=== PATIENT | male | born 1950 | race Caucasian/White ===

== ENCOUNTER 2019-05-24 15:19 | Emergency (ER) | payer OTHER, MEDICARE | END 2019-05-24 18:00 | disposition left against medical advice (07) | LOC: JER 15:19 ==

== ENCOUNTER 2019-05-24 21:13 | Inpatient (IN) | payer OTHER, MEDICARE ==
--- NOTE | 2019-05-24 22:00 | PDOC ---
History of Present Illness - General Chief Complaint: Chest Pain Stated Complaint: CHEST PAIN Time Seen by Provider: 05/24/19 21:56 History Source: Patient Exam Limitations: No Limitations - History of Present Illness Initial Comments: 05/24/19 22:32 69 year old man with a history of HTN presents with heart palpitations and hypotension after working out at the gym at approximately 2 pm. The patient reports that he works out 3-4 times a week. He goes on the treadmill, rowing machine and does sit ups. The patient reports that his symptoms persisted for 2 hours. He took his BP and found it to be 84/57 and a HR of 198. He denies any chest pain or shortness of breath but says that he might have felt some lightheadedness but did not feel it significantly. He denies any nausea. He drove himself to the urgent care where his EKG at the time showed SVT. He was brought to the ED via EMS where carotid massage was performed en route. He denies any other complaints. He left AMA earlier today due to providing sole care to his elderly 97 year old mother at home. He returned and states he feels a sensation of tiredness in his chest. His troponin earlier was 1.36. Allergies: NKDA Past History - Past Medical History Allergies/Adverse Reactions: Allergies Allergy/AdvReac Type Severity Reaction Status Date / Time No Known Allergies Allergy Verified 05/24/19 21:32 Home Medications: Ambulatory Orders Ipratropium [place] 1 spr NS DAILY 05/24/19 Levocetirizine Dihydrochloride 5 mg PO DAILY 05/24/19 Lisinopril 5 mg PO DAILY 05/24/19 Montelukast Sodium [Singulair] 10 mg PO DAILY 05/24/19 Cancer: Yes COPD: No GI Disorders: Yes (diverticular) HTN: Yes - Suicide/Smoking/Psychosocial Hx Smoking History: Never smoked Have you smoked in the past 12 months: No Hx Alcohol Use: No Drug/Substance Use Hx: No *Physical Exam - Vital Signs Last Vital Signs Temp Pulse Resp BP Pulse Ox 97.5 F L 68 18 114/69 100 05/24/19 21:32 05/24/19 21:32 05/24/19 21:32 05/24/19 21:32 05/24/19 21:32 Medical Decision Making - Medical Decision Making 05/25/19 00:34 Laboratory Tests 05/24/19 22:30 Creatine Kinase 472 H Creatine Kinase Index 7.4 H CK-MB (CK-2) 35.0 H Troponin I 8.17 H* trop elevated at 8.17. spoke to sole. agrees likely demand secondary to SVT earlier but will start plavix, lopressor, lovenox. already received full aspirin earlier today.
[2019-05-24] MEDS ORDERED: ASPIRIN 81 MG CHEWABLE TABLETS PO ONE (23:31)
[2019-05-25] MEDS ORDERED: ASPIRIN 81 MG CHEWABLE TABLETS ONE (00:11)
[2019-05-25] MEDS ORDERED: ENOXAPARIN NA (PORCINE) 40 MG/0.4 ML DISP.SYRIN SQ ONE ×3 (00:29→02:25)
[2019-05-25] MEDS ORDERED: METOPROLOL TARTRATE 25 MG TABLET (FP) PO ONE (00:29)
[2019-05-25] MEDS ORDERED: CLOPIDOGREL BISULFATE 300 MG TABLET PO ONE (00:29)
[2019-05-25] MEDS ORDERED: CLOPIDOGREL BISULFATE 300 MG TABLET ONE (00:49)
[2019-05-25] MEDS ORDERED: METOPROLOL TARTRATE 25 MG TABLET (FP) ONE (00:50)
--- NOTE | 2019-05-25 01:39 | PN ---
Teaching Attending Note Name of Resident: Miesha Slaughter ATTENDING PHYSICIAN STATEMENT I saw and evaluated the patient. I reviewed the resident's note and discussed the case with the resident. I agree with the resident's findings and plan as documented. SUBJECTIVE: Patient is a 69 year old man with a PMH of HTN and ?Asthma who presents with heart palpitations and hypotension after working out at the gym at approximately 2 pm. The patient reports that he works out 3-4 times a week. He goes on the treadmill, rowing machine and does sit ups. The patient reports that his symptoms persisted for 2 hours. He took his BP and found it to be 84/ 57 and a HR of 198. He denies any chest pain or shortness of breath but says that he might have felt some lightheadedness but did not feel it significantly. He denies any nausea. He drove himself to the urgent care where his EKG at the time showed SVT. He was brought to the ER via EMS and carotid massage was performed en route and his heart rate improved. He denies any other complaints. He left AMA earlier today due to providing sole care to his elderly 97 year old mother at home. He returned and states he feels a sensation of tiredness in his chest. His troponin earlier was 1.36. OBJECTIVE: Alert Vital Signs Period Temp Pulse Resp BP Sys/Lorenzo Pulse Ox Last 24 Hr 97.5 F 68 18 114/69 100 HEENT: No Jaundice, eye redness or discharge, PERRLA, EOMI. Normocephalic, atraumatic. External ears are normal and hearing is grossly intact. No nasal discharge. Neck: Supple, nontender. No palpable adenopathy or thyromegaly. No JVD Chest: Good effort. Clear to auscultation and percussion. Heart: Regular. No S3, rub or murmur Abdomen: Not distended, soft, nontender and no HSM. No rebound or guarding. Normal bowel sounds. Ext: Peripheral pulses intact. No leg edema. Skin: Warm and dry. No petechiae, rash or ecchymosis. Neuro: Alert. Oriented x3. CN 2-12 grossly intact. Sensation grossly intact in all four extremities and DTR are symmetric. Psych: Appropriate mood and affect. Good insight. Current Medications Generic Name Dose Route Start Last Admin Trade Name Freq PRN Reason Stop Dose Admin Aspirin 81 mg 05/25/19 10:00 Asa - PO DAILY [facility] Clopidogrel Bisulfate 75 mg 05/25/19 10:00 Plavix - PO DAILY [facility] Enoxaparin Sodium 40 mg 05/25/19 02:25 Lovenox - SQ 05/25/19 02:26 ONCE ONE Enoxaparin Sodium 80 mg 05/25/19 10:00 Lovenox - SQ BID [facility] Home Medications Medication Instructions Recorded Ipratropium [place] 1 spr NS DAILY 05/24/19 Levocetirizine Dihydrochloride 5 mg PO DAILY 05/24/19 Lisinopril 5 mg PO DAILY 05/24/19 Montelukast Sodium [Singulair] 10 mg PO DAILY 05/24/19 Abnormal Lab Results 05/24/19 22:30 Creatine Kinase 472 H Creatine Kinase Index 7.4 H CK-MB (CK-2) 35.0 H Troponin I 8.17 H* ASSESSMENT AND PLAN: 1. NSTEMI and SVT - EKG shows NSR with no significant ST-T wave changes. Repeat troponin is up to 8.17. ER staff spoke with the sales merchandise associate who recommended Plavix, Lopressor and full dose Lovenox. Already received Aspirin 162 mg. Admit to telemetry, trend troponin, get fasting lipids, ECHO, TSH and urine toxicology. No acute abnormality on CXR. 2. Hypertension - Restart suitable outpatient antihypertensive drugs when clinically appropriate. Revise regimen to ensure [id number] excellent BP control and chemical dependency counselor patient on the injurious effects of uncontrolled hypertension. Nonpharmacologic measures to control hypertension like weight loss , salt restriction and exercise discussed. Importance of adherence to treatment regimen and attainment of normotension emphasized. 3. DVT prophylaxis - On full dose lovenox for NSTEMI 4. Advance directives - Full code
--- NOTE | 2019-05-25 01:47 | PDOC ---
Documentation entered by Yesenia Carson SCRIBE, acting as scribe for Kerline Evans MD. Kerline Evans MD: This documentation has been prepared by the Alli noe Xhesika, SCRIBE, under my direction and personally reviewed by me in its entirety. I confirm that the documentation accurately reflects all work, treatment, procedures, and medical decision making performed by me. Attending Attestation - Resident Resident Name: Hay Max - ED Attending Attestation I have performed the following: I have examined & evaluated the patient, The case was reviewed & discussed with the resident, I agree w/resident's findings & plan - HPI HPI: 05/25/19 01:44 The patient is a 69 year old male with a significant PMH of HTN who presents to the emergency department with heart palpitations. Patient was seen here in the ED this morning for similar symptoms, had a positive Troponin, however, patient AMAd to take care of a family member (his elderly 97 year old mother at home), and returned to the ED now because he was told to. The patient states his symptoms began after working out at the gym at 2pm, came home, and when he measured his BP it was 84/57 and HR of 198. Patient denies any chest pain currently but notes he feels a tiredness sensation in his chest. The patient denies chest pain, shortness of breath, headache and dizziness. Denies fever, chills, cough, nausea, vomiting, diarrhea and constipation. Denies dysuria, frequency, urgency and hematuria. Allergies: NKDA - Physicial Exam PE: 05/25/19 01:45 GENERAL: Awake, alert, and fully oriented, in no acute distress HEAD: No signs of trauma EYES: PERRLA, EOMI, sclera anicteric, conjunctiva clear ENT: Auricles normal inspection, hearing grossly normal, nares patent, oropharynx clear without exudates. Moist mucosa NECK: Normal ROM, supple, no lymphadenopathy, JVD, or masses LUNGS: Breath sounds equal, clear to auscultation bilaterally. No wheezes, and no crackles HEART: Regular rate and rhythm, normal S1 and S2, no murmurs, rubs or gallops ABDOMEN: Soft, nontender, normoactive bowel sounds. No guarding, no rebound. No masses EXTREMITIES: Normal range of motion, no edema. No clubbing or cyanosis. No cords, erythema, or tenderness NEUROLOGICAL: Cranial nerves II through XII grossly intact. Normal speech, normal gait SKIN: Warm, Dry, normal turgor, no rashes or lesions noted. - Medical Decision Making 05/25/19 01:45 Pt is spilling troponins. EKG is normal earlier today and currently. He has no CP; he has returned because he was told that he has elevated enzyme and he was told to ocme in. 05/25/19 01:46 Pt has trop of 8. He will be admitted to telemetry. I am not treating with blood thinners, as pt has no chest pain, and he never had CP. We paged computational sciences professor cards rina, and no response.
--- NOTE | 2019-05-25 03:08 | HP ---
CHIEF COMPLAINT:palpitations, elevated troponin PCP:Dr. Milner HISTORY OF PRESENT ILLNESS: Patient is a 69 year old male with past medical history of HTN, was BIBEMS after an episode of palpitations and hypotension that started after working out yesterday afternoon. Patient reported he worked out at the gym, finished at around 2 pm and right after noted palpitations. This persisted for about 2 hours , when patient finally decided to go to an urgent care. At the urgent care, patient was found to be hypotensive at 84/57 and tachycardic at 198. EKG showed SVT and patient was subsequently brought to the ED. En route to the hospital, carotid massage was done by EMS which resolved the tachycardia. Upon arrival at the ED, HR was at 60s and EKG repeated showed NSR with no ischemic changes. Troponin was noted to be elevated at 1.36 and ASA 325mg was given. Cardiology was consulted and admission was recommended. PAtient however decided to leave AMA to go home and take care of his mother, and promised to come back when everything was settled at home. Last night, at around 9pm, patient came back for further evaluation and was amenable to admission this time. Since arrival at the hospital, patient denies any headache, dizziness, chest pain, shortness of breath, palpitations, abdominal pain, diarrhea, urinary symptoms. ER course was notable for: (1)Trop 1.35 --> 8.17 (2)EKG: NSR with no acute ST-T wave changes (3)Lopressor 25mg, Lovenox 80mg, Plavix 300mg Recent Travel:denies PAST MEDICAL HISTORY: HTN PAST SURGICAL HISTORY: none Social History: Smoking:denies Alcohol:denies Drugs: denies Family History: Father - HTN, heart attack at 80 Mother - HTN Allergies No Known Allergies Allergy (Verified 05/24/19 21:32) HOME MEDICATIONS: Home Medications Medication Instructions Recorded Ipratropium [place] 1 spr NS DAILY 05/24/19 Levocetirizine Dihydrochloride 5 mg PO DAILY 05/24/19 Lisinopril 5 mg PO DAILY 05/24/19 Montelukast Sodium [Singulair] 10 mg PO DAILY 05/24/19 REVIEW OF SYSTEMS CONSTITUTIONAL: Absent: fever, chills, diaphoresis, generalized weakness, malaise, loss of appetite, weight change HEENT: Absent: rhinorrhea, nasal congestion, throat pain, throat swelling, difficulty swallowing, mouth swelling, ear pain, eye pain, visual changes CARDIOVASCULAR: Absent: chest pain, syncope, palpitations, irregular heart rate, lightheadedness , peripheral edema RESPIRATORY: Absent: cough, shortness of breath, dyspnea with exertion, orthopnea, wheezing, stridor, hemoptysis GASTROINTESTINAL: Absent: abdominal pain, abdominal distension, nausea, vomiting, diarrhea, constipation, melena, hematochezia GENITOURINARY: Absent: dysuria, frequency, urgency, hesitancy, hematuria, flank pain, genital pain MUSCULOSKELETAL: Absent: myalgia, arthralgia, joint swelling, back pain, neck pain SKIN: Absent: rash, itching, pallor HEMATOLOGIC/IMMUNOLOGIC: Absent: easy bleeding, easy bruising, lymphadenopathy, frequent infections ENDOCRINE: Absent: unexplained weight gain, unexplained weight loss, heat intolerance, cold intolerance NEUROLOGIC: Absent: headache, focal weakness or paresthesias, dizziness, unsteady gait, seizure, mental status changes, bladder or bowel incontinence PSYCHIATRIC: Absent: anxiety, depression, suicidal or homicidal ideation, hallucinations. PHYSICAL EXAMINATION Vital Signs - 24 hr 05/24/19 21:32 Temperature 97.5 F L Pulse Rate 68 Respiratory 18 Rate Blood Pressure 114/69 O2 Sat by Pulse 100 Oximetry (%) GENERAL: Awake, alert, and fully oriented, in no acute distress. HEAD: Normal with no signs of trauma. EYES: PERRLA, EOMI, sclera anicteric, conjunctiva clear. EARS, NOSE, THROAT: Moist mucous membranes. NECK: Normal range of motion, supple. LUNGS: Breath sounds equal, clear to auscultation bilaterally. HEART: Regular rate and rhythm, normal S1 and S2 without murmur, rub or gallop. ABDOMEN: Soft, nontender, not distended, normoactive bowel sounds. MUSCULOSKELETAL: Normal range of motion at all joints. UPPER EXTREMITIES: 2+ pulses, warm, well-perfused.No peripheral edema. LOWER EXTREMITIES: 2+ pulses, warm, well-perfused. No peripheral edema. NEUROLOGICAL: Cranial nerves II-XII intact. Normal speech. Normal gait. Motor strength 5/5, sensation intact. PSYCHIATRIC: Cooperative. Good eye contact. Appropriate mood and affect. SKIN: Warm, dry, normal turgor, no rashes or lesions noted. Laboratory Results - last 24 hr 05/24/19 22:30 Creatine Kinase 472 H Creatine Kinase Index 7.4 H CK-MB (CK-2) 35.0 H Troponin I 8.17 H* ASSESSMENT/PLAN: Patient is a 69 year old male with past medical history of HTN, was BIBEMS after an episode of palpitations and hypotension that started after working out yesterday afternoon. #Elevated troponins -may be 2/2 demand ischemia from SVT vs NSTEMI -Trop 1.36 --> 8.17, will continue to trend -Repeat EKG with trop -Echo -Tele monitoring -Lipid profile -HbA1c -Will keep NPO for now -Cardiology (Dr. Tang) consulted. Recommendations appreciated. -Start Lovenox 80mg sq bid -Plavix 300mg given at the ED, will continue 75mg daily -ASA 81mg daily -Lopressor 25mg given once at the ED, will hold Lopressor for now, HR noted to be at the high 40s. #HTN -BP wnl, will continue to monitor for now #FEN -IV NS @83cc/hr -Electrolytes wnl, routine bmp monitoring -NPO #Prophylaxis -Lovenox 80mg sq bid #Disposition -full code -admit to tele Visit type - Emergency Visit Emergency Visit: Yes ED Registration Date: 05/25/19 Care time: The patient presented to the Emergency Department on the above date and was hospitalized for further evaluation of their emergent condition. - New Patient This patient is new to me today: Yes Date on this admission: 05/26/19 - Critical Care Critical Care patient: No ATTENDING PHYSICIAN STATEMENT I saw and evaluated the patient. I reviewed the resident's note and discussed the case with the resident. I agree with the resident's findings and plan as documented. SUBJECTIVE: OBJECTIVE: ASSESSMENT AND PLAN:
[2019-05-25] MEDS ORDERED: SODIUM CHLORIDE 1,000 ML IV SCH (04:15)
[2019-05-25 05:11] VITALS: BMI 27.4
[2019-05-25] MEDS: ENOXAPARIN NA (PORCINE) 80 MG/0.8 ML DISP.SYRIN SQ SCH ×2 (05:12→16:35)
[2019-05-25 06:38] LABS: BASO % 0.8 % (0-2.0); EOS % 3.2 % (0-4.5); HEMATOCRIT 40.1 % (35.4-49); HEMOGLOBIN 13.7 GM/dL (11.7-16.9); LYMPH % 30.9 % (8-40); MCH 31.5 pg (25.7-33.7); MCHC 34.1 g/dl (32.0-35.9); MEAN CELL VOLUME 92.4 fl (80-96); MEAN PLT VOLUME 9.9 fl (7.5-11.1); MONO % 12.9 % (3.8-10.2); NEUT % 52.2 % (42.8-82.8); PLATELET COUNT 136 K/MM3 (134-434); RBC 4.35 M/mm3 (4.00-5.60); RDW 13.3 % (11.9-15.9); WHITE BLOOD COUNT 5.3 K/mm3 (4.0-10.0)
[2019-05-25 07:27] LABS: ALBUMIN 3.5 g/dl (3.4-5.0); BILIRUBIN,TOTAL 0.7 mg/dL (0.2-1); BLOOD UREA NITROGEN 14.5 mg/dL (7-18); CALCIUM 9.1 mg/dL (8.5-10.1); CREATININE 1.1 mg/dL (0.55-1.3); MAGNESIUM 2.1 mg/dL (1.8-2.4); PHOSPHOROUS 3.5 mg/dL (2.5-4.9); POTASSIUM 4.1 mmol/L (3.5-5.1); TOT PROT 6.3 g/dl (6.4-8.2)
--- NOTE | 2019-05-25 08:40 | CON.CARD ---
Consult Consult Specialty:: Cardiology Reason for Consultation:: nonstemi - History of Present Illness History of Present Illness: Patient is a 69 year old male with past medical history of HTN, was BIBEMS after an episode of palpitations and hypotension that started after working out yesterday afternoon. Patient reported he worked out at the gym, finished at around 2 pm and right after noted palpitations. This persisted for about 2 hours , when patient finally decided to go to an urgent care. At the urgent care, patient was found to be hypotensive at 84/57 and tachycardic at 198. EKG showed SVT and patient was subsequently brought to the ED. En route to the hospital, carotid massage was done by EMS which resolved the tachycardia. Upon arrival at the ED, HR was at 60s and EKG repeated showed NSR with no ischemic changes. Troponin was noted to be elevated at 1.36 and ASA 325mg was given. Cardiology was consulted and admission was recommended. PAtient however decided to leave AMA to go home and take care of his mother, and promised to come back when everything was settled at home. Last night, at around 9pm, patient came back for further evaluation and was amenable to admission this time. Since arrival at the hospital, patient denies any headache, dizziness, chest pain, shortness of breath, palpitations, abdominal pain, diarrhea, urinary symptoms. ER course was notable for: (1)Trop 1.35 --> 8.17 (2)EKG: NSR with no acute ST-T wave changes (3)Lopressor 25mg, Lovenox 80mg, Plavix 300mg - History Source History Provided By: Patient, Medical Record - Past Medical History Cardio/Vascular: Yes: HTN - Alcohol/Substance Use Hx Alcohol Use: No - Smoking History Smoking history: Never smoked Have you smoked in the past 12 months: No Home Medications - Allergies Allergies/Adverse Reactions: Allergies Allergy/AdvReac Type Severity Reaction Status Date / Time No Known Allergies Allergy Verified 05/24/19 21:32 - Home Medications Home Medications: Ambulatory Orders Ipratropium [place] 1 spr NS DAILY 05/24/19 Levocetirizine Dihydrochloride 5 mg PO DAILY 05/24/19 Lisinopril 5 mg PO DAILY 05/24/19 Montelukast Sodium [Singulair] 10 mg PO DAILY 05/24/19 Review of Systems - Review of Systems Constitutional: reports: Weakness Eyes: reports: No Symptoms HENT: reports: No Symptoms Neck: reports: No Symptoms Cardiovascular: reports: Palpitations Respiratory: reports: No Symptoms Gastrointestinal: reports: No Symptoms Genitourinary: reports: No Symptoms Breasts: reports: No Symptoms Reported Musculoskeletal: reports: No Symptoms Integumentary: reports: No Symptoms Neurological: reports: No Symptoms Endocrine: reports: No Symptoms Hematology/Lymphatic: reports: No Symptoms Psychiatric: reports: No Symptoms Vital Signs: Vital Signs Temperature 98.2 F 05/25/19 06:25 Pulse Rate 49 L 05/25/19 06:25 Respiratory Rate 18 05/25/19 08:26 Blood Pressure 126/72 05/25/19 06:25 O2 Sat by Pulse Oximetry (%) 100 05/25/19 08:26 Constitutional: Yes: Well Nourished, No Distress, Calm Eyes: Yes: WNL, Conjunctiva Clear, EOM Intact HENT: Yes: WNL, Atraumatic, Normocephalic Neck: Yes: WNL, Supple, Trachea Midline Respiratory: Yes: WNL, Regular, CTA Bilaterally Gastrointestinal: Yes: WNL, Normal Bowel Sounds Renal/: Yes: WNL Cardiovascular: Yes: WNL, Regular Rate and Rhythm Musculoskeletal: Yes: WNL Extremities: Yes: WNL Integumentary: Yes: WNL Neurological: Yes: WNL, Alert, Oriented ...Motor Strength: WNL Psychiatric: Yes: WNL, Alert, Oriented - Other Data Labs, Other Data: CBC, BMP 05/25/19 06:12 05/25/19 06:12 Troponin, BNP 05/24/19 05/25/19 22:30 06:12 Troponin I 8.17 H* 6.62 H* Troponin, BNP 05/24/19 05/25/19 22:30 06:12 Troponin I 8.17 H* 6.62 H* Imaging - Results Chest X-ray: Pending EKG: Image Reviewed (nsr wnl) Problem List - Problems (1) Palpitations Code(s): R00.2 - PALPITATIONS Assessment/Plan svt hypotension/weakness nonstemi nonsustained VT on telemetry Plan transfer to [facility] for c.cath EP evaluation asa/plavix lovenox 1 mg/kg Toprol XL d/w [place] presb Transfer center at [address] Vidhi Vargas
[2019-05-25] MEDS ORDERED: ATORVASTATIN CA 80 MG TABLET (FP) PO ONE (08:45)
--- NOTE | 2019-05-25 09:16 | EKG ---
Test Reason : Blood Pressure : / mmHG Vent. Rate : 056 BPM Atrial Rate : 056 BPM P-R Int : 112 ms QRS Dur : 082 ms QT Int : 460 ms P-R-T Axes : 069 027 041 degrees QTc Int : 443 ms SINUS BRADYCARDIA WITH FREQUENT PREMATURE VENTRICULAR COMPLEXES OTHERWISE NORMAL ECG WHEN COMPARED WITH ECG OF 24-MAY-2019 21:19, PREMATURE VENTRICULAR COMPLEXES ARE NOW PRESENT Confirmed by MINI RICHARDSON, CHEVY ([id number]) on 05/25/2019 9:16:31 AM Referred By: Bette GUERRERO Confirmed By:CHEVY MORSE MD
--- NOTE | 2019-05-25 09:17 | EKG ---
Test Reason : Blood Pressure : / mmHG Vent. Rate : 064 BPM Atrial Rate : 064 BPM P-R Int : 114 ms QRS Dur : 088 ms QT Int : 402 ms P-R-T Axes : 072 041 051 degrees QTc Int : 414 ms NORMAL SINUS RHYTHM POSSIBLE LEFT ATRIAL ENLARGEMENT BORDERLINE ECG WHEN COMPARED WITH ECG OF 24-MAY-2019 15:34, NO SIGNIFICANT CHANGE WAS FOUND Confirmed by CHEVY MORSE MD ([id number]) on 05/25/2019 9:17:30 AM Referred By: Confirmed By:CHEVY MORSE MD
[2019-05-25] MEDS ORDERED: CLOPIDOGREL BISULFATE 75 MG TABLET (FP) PO SCH (10:00)
[2019-05-25] MEDS ORDERED: ASPIRIN 81 MG CHEWABLE TABLETS PO SCH (10:00)
--- NOTE | 2019-05-25 11:27 | PN ---
Teaching Attending Note Name of Resident: [place] ATTENDING PHYSICIAN STATEMENT I saw and evaluated the patient. I reviewed the resident's note and discussed the case with the resident. I agree with the resident's findings and plan as documented with exceptions below. SUBJECTIVE: Patient seen and examined. Denies any chest pain palpitations, dyspnea or dizziness. OBJECTIVE: Vital Signs Period Temp Pulse Resp BP Sys/Lorenzo Pulse Ox Last 24 Hr 97.5 F-98.2 F 49-68 18-19 101-132/56-74 98-100 Intake & Output 05/22/19 05/23/19 05/24/19 05/25/19 23:59 23:59 23:59 23:59 Intake Total 83 Balance 83 Weight 166 lb 170 lb General: ambulating in hallway, no acute distress CVS:S1s2 regular Chest: CTAB, no rales or wheezing Abdomen:soft, NT, ND, pos bowel sounds Extremities: no edema Telemetry NSVT 5-6 beats and short burst of ?SVT Laboratory Results - last 24 hr 05/24/19 05/25/19 05/25/19 22:30 06:12 06:12 WBC 5.3 RBC 4.35 Hgb 13.7 Hct 40.1 MCV 92.4 MCH 31.5 MCHC 34.1 RDW 13.3 Plt Count 136 MPV 9.9 Absolute Neuts (auto) 2.8 Neutrophils % 52.2 D Lymphocytes % 30.9 D Monocytes % 12.9 H Eosinophils % 3.2 D Basophils % 0.8 Nucleated RBC % 0 Sodium 138 Potassium 4.1 Chloride 104 Carbon Dioxide 29 Anion Gap 5 L BUN 14.5 Creatinine 1.1 Est GFR (CKD-EPI)AfAm 78.97 Est GFR (CKD-EPI)NonAf 68.13 Random Glucose 87 Hemoglobin A1c % Calcium 9.1 Phosphorus 3.5 Magnesium 2.1 Total Bilirubin 0.7 AST 80 H ALT 50 Alkaline Phosphatase 52 Creatine Kinase 472 H 378 H Creatine Kinase Index 7.4 H 7.9 H CK-MB (CK-2) 35.0 H 29.9 H Troponin I 8.17 H* 6.62 H* Total Protein 6.3 L Albumin 3.5 Triglycerides 54 Cholesterol 178 Total LDL Cholesterol 107 H HDL Cholesterol 58 TSH 1.22 05/25/19 06:12 WBC RBC Hgb Hct MCV MCH MCHC RDW Plt Count MPV Absolute Neuts (auto) Neutrophils % Lymphocytes % Monocytes % Eosinophils % Basophils % Nucleated RBC % Sodium Potassium Chloride Carbon Dioxide Anion Gap BUN Creatinine Est GFR (CKD-EPI)AfAm Est GFR (CKD-EPI)NonAf Random Glucose Hemoglobin A1c % 5.3 Calcium Phosphorus Magnesium Total Bilirubin AST ALT Alkaline Phosphatase Creatine Kinase Creatine Kinase Index CK-MB (CK-2) Troponin I Total Protein Albumin Triglycerides Cholesterol Total LDL Cholesterol HDL Cholesterol TSH CXr results noted, no acute process Home Medications Medication Instructions Recorded Ipratropium [place] 1 spr NS DAILY 05/24/19 Levocetirizine Dihydrochloride 5 mg PO DAILY 05/24/19 Lisinopril 5 mg PO DAILY 05/24/19 Montelukast Sodium [Singulair] 10 mg PO DAILY 05/24/19 Active Medications Aspirin (Asa -) 81 mg PO DAILY [facility] Last Admin: 05/25/19 09:20 Dose: 81 mg Clopidogrel Bisulfate (Plavix -) 75 mg PO DAILY [facility] Last Admin: 05/25/19 09:20 Dose: 75 mg Enoxaparin Sodium (Lovenox -) 80 mg SQ Q12H [facility] Last Admin: 05/25/19 05:12 Dose: Not Given Sodium Chloride (Normal Saline -) 1,000 mls @ 83 mls/hr IV ASDIR [facility] Last Admin: 05/25/19 05:36 Dose: 83 mls/hr Metoprolol Succinate (Toprol Xl -) 50 mg PO DAILY [facility] Last Admin: 05/25/19 09:20 Dose: 50 mg ASSESSMENT AND PLAN: 69 yom with PMhx of HTN, ?Asthma seen in ED on 05/24 with episode of palpitations/ dizziness, noted with SVT, that resolved with carotid massage with EMS, when noted with elevated Troponin, left AMA, admitted back for further care -SVT -NSVT -NSTEMi, demand type II in the setting of above, Vs ACS -HTN -?Asthma Plan: Cardiology input noted. s/p lovenox/plavix loading. Continue ASA/plavix/metoprolol/lovenox. Plan for transfer to [facility] for cardiac cath/EP study. Discussed with patient and nursing, all questions answered.
--- NOTE | 2019-05-25 11:32 | PN ---
Physical Exam: SUBJECTIVE: Patient seen and examined at bedside. No complaints at this time. SVT and runs of VT up to 5s noted on tele OBJECTIVE: Vital Signs Period Temp Pulse Resp BP Sys/Lorenzo Pulse Ox Last 24 Hr 97.5 F-98.2 F 49-68 18-19 101-132/56-74 98-100 Gen: AAOx3, NAD HEENT: NCAT, eomi Neck: no jvd, supple, Cardio: rrr, normal s1s2, no mrg Pulm: cta b/l Abd: soft, nontender, nondistended Ext: no edema, 2+ pulses Laboratory Results - last 24 hr 05/24/19 05/25/19 05/25/19 22:30 06:12 06:12 WBC 5.3 RBC 4.35 Hgb 13.7 Hct 40.1 MCV 92.4 MCH 31.5 MCHC 34.1 RDW 13.3 Plt Count 136 MPV 9.9 Absolute Neuts (auto) 2.8 Neutrophils % 52.2 D Lymphocytes % 30.9 D Monocytes % 12.9 H Eosinophils % 3.2 D Basophils % 0.8 Nucleated RBC % 0 Sodium 138 Potassium 4.1 Chloride 104 Carbon Dioxide 29 Anion Gap 5 L BUN 14.5 Creatinine 1.1 Est GFR (CKD-EPI)AfAm 78.97 Est GFR (CKD-EPI)NonAf 68.13 Random Glucose 87 Hemoglobin A1c % Calcium 9.1 Phosphorus 3.5 Magnesium 2.1 Total Bilirubin 0.7 AST 80 H ALT 50 Alkaline Phosphatase 52 Creatine Kinase 472 H 378 H Creatine Kinase Index 7.4 H 7.9 H CK-MB (CK-2) 35.0 H 29.9 H Troponin I 8.17 H* 6.62 H* Total Protein 6.3 L Albumin 3.5 Triglycerides 54 Cholesterol 178 Total LDL Cholesterol 107 H HDL Cholesterol 58 TSH 1.22 05/25/19 06:12 WBC RBC Hgb Hct MCV MCH MCHC RDW Plt Count MPV Absolute Neuts (auto) Neutrophils % Lymphocytes % Monocytes % Eosinophils % Basophils % Nucleated RBC % Sodium Potassium Chloride Carbon Dioxide Anion Gap BUN Creatinine Est GFR (CKD-EPI)AfAm Est GFR (CKD-EPI)NonAf Random Glucose Hemoglobin A1c % 5.3 Calcium Phosphorus Magnesium Total Bilirubin AST ALT Alkaline Phosphatase Creatine Kinase Creatine Kinase Index CK-MB (CK-2) Troponin I Total Protein Albumin Triglycerides Cholesterol Total LDL Cholesterol HDL Cholesterol TSH Active Medications Generic Name Dose Route Start Last Admin Trade Name Kashif PRN Reason Stop Dose Admin Aspirin 81 mg 05/25/19 10:00 05/25/19 09:20 Asa - PO 81 mg DAILY ANGELA Administration Clopidogrel Bisulfate 75 mg 05/25/19 10:00 05/25/19 09:20 Plavix - PO 75 mg DAILY ANGELA Administration Enoxaparin Sodium 80 mg 05/25/19 03:00 05/25/19 05:12 Lovenox - SQ Not Given Q12H ANGELA Sodium Chloride 1,000 mls @ 83 mls/hr 05/25/19 04:15 05/25/19 05:36 Normal Saline - IV 83 mls/hr ASDIR ANGELA Administration Metoprolol Succinate 50 mg 05/25/19 10:00 05/25/19 09:20 Toprol Xl - PO 50 mg DAILY ANGELA Administration ASSESSMENT/PLAN: Pt is a 69 y/o M with PMH HTN and family hist sig for father with AL at age 80 who was brought to ED with complaint of malaise and palpitations after visiting an Urgent Care and being found to have SVT (likely brought about during exercise ). #NSTEMI with Arrhythmia, likely new -Pt w/ no hist of palpitations noted to have symptomatic persistent SVT following exercise -Tele with multiple runs of VT up to 5 sec as well as SVT. Notably, pt has been asymptommatic since being in hospital -On Beta shannon -Troponin elevation to 8, ? attributable to persistent SVT -concerning new arrhythmia with unknown coronary anatomy -Pt seen by cardiology. To be transferred for likely cath/EP study -ASA, Plavix, Metoprolol, Lovenox #HTN -BP under control here -on Metoprolol Visit type - Emergency Visit Emergency Visit: Yes ED Registration Date: 05/25/19 Care time: The patient presented to the Emergency Department on the above date and was hospitalized for further evaluation of their emergent condition. - New Patient This patient is new to me today: Yes Date on this admission: 05/25/19 - Critical Care Critical Care patient: No ATTENDING PHYSICIAN STATEMENT I saw and evaluated the patient. I reviewed the resident's note and discussed the case with the resident. I agree with the resident's findings and plan as documented. SUBJECTIVE: OBJECTIVE: ASSESSMENT AND PLAN:
[2019-05-25 11:41] VITALS: PULSE 56
[2019-05-25 19:14] VITALS: BP 126/69; TEMP 98
--- NOTE | 2019-05-26 13:49 | DS ---
Physical Exam: SUBJECTIVE: Patient seen and examined on 05/25, no complaints. OBJECTIVE: Vital Signs Period Temp Pulse Resp BP Sys/Lorenzo Pulse Ox Last 24 Hr 98.0 F-98.5 F 56-56 18-18 110-126/66-69 PHYSICAL EXAM General: ambulating in hallway, no acute distress neck: soft, supple, no JVD CVS:S1s2 regular Chest: CTAB, no rales or wheezing Abdomen:soft, NT, ND, pos bowel sounds Extremities: no edema Psych: pleasant, co-operative HEENT: PERRL, EOMI Telemetry NSVT 5-6 beats and short burst of ?SVT LABS Laboratory Tests 05/24/19 05/25/19 05/25/19 22:30 06:12 06:12 WBC 5.3 RBC 4.35 Hgb 13.7 Hct 40.1 MCV 92.4 MCH 31.5 MCHC 34.1 RDW 13.3 Plt Count 136 MPV 9.9 Absolute Neuts (auto) 2.8 Neutrophils % 52.2 D Lymphocytes % 30.9 D Monocytes % 12.9 H Eosinophils % 3.2 D Basophils % 0.8 Nucleated RBC % 0 Sodium 138 Potassium 4.1 Chloride 104 Carbon Dioxide 29 Anion Gap 5 L BUN 14.5 Creatinine 1.1 Est GFR (CKD-EPI)AfAm 78.97 Est GFR (CKD-EPI)NonAf 68.13 Random Glucose 87 Hemoglobin A1c % Calcium 9.1 Phosphorus 3.5 Magnesium 2.1 Total Bilirubin 0.7 AST 80 H ALT 50 Alkaline Phosphatase 52 Creatine Kinase 472 H 378 H Creatine Kinase Index 7.4 H 7.9 H CK-MB (CK-2) 35.0 H 29.9 H Troponin I 8.17 H* 6.62 H* Total Protein 6.3 L Albumin 3.5 Triglycerides 54 Cholesterol 178 Total LDL Cholesterol 107 H HDL Cholesterol 58 TSH 1.22 05/25/19 06:12 WBC RBC Hgb Hct MCV MCH MCHC RDW Plt Count MPV Absolute Neuts (auto) Neutrophils % Lymphocytes % Monocytes % Eosinophils % Basophils % Nucleated RBC % Sodium Potassium Chloride Carbon Dioxide Anion Gap BUN Creatinine Est GFR (CKD-EPI)AfAm Est GFR (CKD-EPI)NonAf Random Glucose Hemoglobin A1c % 5.3 Calcium Phosphorus Magnesium Total Bilirubin AST ALT Alkaline Phosphatase Creatine Kinase Creatine Kinase Index CK-MB (CK-2) Troponin I Total Protein Albumin Triglycerides Cholesterol Total LDL Cholesterol HDL Cholesterol TSH HOSPITAL COURSE: Date of Admission:05/25/19 Date of Discharge: 05/26/19 Minutes to complete discharge: 42 Discharge Summary Reason For Visit: ACUTE CORONARY SYNDROME Hospital Course: 69 yom with PMhx of HTN, ?Asthma seen in ED on 05/24 with episode of palpitations/ dizziness, noted with SVT, that resolved with carotid massage with EMS, when noted with elevated Troponin, left AMA, admitted back for further care. He received ASA/plavix loading, placed on full dose lovenox/ASA/plavix/metoprolol. He was seen by cardiology and is being transferred to [facility] for cardiac cath/EP study. His troponin peaked at 8.17. Condition: Guarded - Instructions Disposition: TRANSFER ACUTE CARE/OTHER HOSP - Home Medications Comprehensive Discharge Medication List: Ambulatory Orders Ipratropium [place] 1 spr NS DAILY 05/24/19 Levocetirizine Dihydrochloride 5 mg PO DAILY 05/24/19 Lisinopril 5 mg PO DAILY 05/24/19 Montelukast Sodium [Singulair] 10 mg PO DAILY 05/24/19 This patient is new to me today: Yes Date on this admission: 05/26/19 Emergency Visit: Yes ED Registration Date: 05/25/19 Care time: The patient presented to the Emergency Department on the above date and was hospitalized for further evaluation of their emergent condition. Critical Care patient: No - Discharge Referral Referred to [facility] No
== END 2019-05-25 20:30 | disposition short-term general hospital (02) | DRG 281 ==
LOC: JER 21:13 → JERBED 05-25 00:34 → J4W 05-25 04:34
PROVIDERS: ADMIT Internal Medicine; ATTEND Hospitalist
DX: I21.4 Non-ST elevation (NSTEMI) myocardial infarction (principal); I47.1 Supraventricular tachycardia; I45.89 Other specified conduction disorders; I10 Essential (primary) hypertension; I95.9 Hypotension, unspecified; R00.2 Palpitations
CPT/HCPCS: 36415; 71045-TC-FY; 80053; 80061; 81003; 82550; 82553; 83036; 83721; 83735; 83880; 84100; 84443; 84484; 85025; 87086; 93005; 93010; 99285-25; J7030

== ENCOUNTER 2022-08-30 04:20 | Day surgery (SDC) | payer OTHER, MEDICARE ==
[2022-08-29 10:54] VITALS: BMI 30.6
[2022-08-30 16:03] VITALS: RESP 17
[2022-08-30 16:24] VITALS: BP 156/72; PULSE 55; TEMP 98
== END 2022-08-30 14:23 | disposition home or self-care (01) ==
LOC: JASU-ENDO 04:20
PROVIDERS: ATTEND Internal Medicine Gastroenterology
PROC: 0DBF8ZX Excision of Right Large Intestine, Via Natural or Artificial Opening Endoscopic, Diagnostic (ICD-10-PCS; principal; 2022-08-30 11:45)
DX: D12.2 Benign neoplasm of ascending colon (principal); K63.89 Other specified diseases of intestine; K64.8 Other hemorrhoids
CPT/HCPCS: 88305-TC

== ENCOUNTER 2023-10-30 10:26 | Emergency (ER) | payer OTHER, MEDICARE ==
[2023-10-30 10:34] VITALS: RESP 18; TEMP 97.9; BMI 28.2
[2023-10-30 13:20] LABS: INR 1.06 (0.83-1.09); PROTHROMBIN TIME (PATIENT) 12.3 SEC (9.7-13.0)
[2023-10-30 13:23] LABS: ACTIVATED PTT 29.4 SECONDS (25.2-36.5)
[2023-10-30 13:25] LABS: BASO % 0.5 % (0-2.0); EOS % 1.1 % (0-4.5); HEMATOCRIT 40.7 % (35.4-49); LYMPH % 15.7 % (8-40); MCH 31.2 pg (25.7-33.7); MCHC 34.3 g/dl (32.0-35.9); MEAN CELL VOLUME 90.8 fl (80-96); MEAN PLT VOLUME 9.6 fl (7.5-11.1); MONO % 9.2 % (3.8-10.2); NEUT % 73.5 % (42.8-82.8); PLATELET COUNT 156 10^3/uL (134-434); RBC 4.47 M/mm3 (4.00-5.60); RDW 12.7 % (11.9-15.9); WHITE BLOOD COUNT 8.5 K/mm3 (4.0-10.0)
[2023-10-30 13:35] LABS: POTASSIUM 4.2 mmol/L (3.5-5.1)
[2023-10-30 13:38] LABS: CALCIUM 9.1 mg/dL (8.5-10.1)
[2023-10-30 13:39] LABS: ALBUMIN 3.8 g/dl (3.4-5.0)
[2023-10-30 13:44] LABS: BILIRUBIN,TOTAL 0.7 mg/dL (0.2-1); TOT PROT 6.5 g/dl (6.4-8.2)
[2023-10-30] MEDS ORDERED: SULFAMETHOXAZOLE/TRIMETHOPRIM 800MG/160MG D.S. TABLET ONE (14:49)
[2023-10-30] MEDS ORDERED: ceFAZolin SODIUM 1 GM VIAL ONE (14:49)
[2023-10-30] MEDS: SULFAMETHOXAZOLE/TRIMETHOPRIM 800MG/160MG D.S. TABLET PO ONE (15:02)
[2023-10-30] MEDS: CEFAZOLIN 1 GM in DEXTROSE 5%-WATER - 50 ML IVPB ONE (15:02)
[2023-10-30 15:48] VITALS: BP 140/80; PULSE 67
== END 2023-10-30 15:49 | disposition home or self-care (01) ==
LOC: JER 10:26
PROC: 3E033GC Introduction of Other Therapeutic Substance into Peripheral Vein, Percutaneous Approach (ICD-10-PCS; principal; 2023-10-30)
DX: L03.116 Cellulitis of left lower limb (principal); Z20.822 Contact with and (suspected) exposure to COVID-19
CPT/HCPCS: 0241U-QW; 36415; 73590-TC-LT-FY; 80053; 83605; 85025; 85610; 85730; 86140; 86850; 86900; 86901; 87040; 93971-TC; 99285-25